=== PATIENT | female | born 1985 | race Hispanic/Latino ===

== ENCOUNTER 2020-08-23 08:10 | Emergency (ER) | payer SELFPAY ==
[2020-08-23 08:24] VITALS: BP 136/87
--- NOTE | 2020-08-23 09:36 | Emergency Department Report ---
ED Eye Problem HPI - General Chief complaint: Eye Problems Stated complaint: RT EYE INFECTION Time Seen by Provider: 08/23/20 08:40 Source: patient Mode of arrival: Ambulatory Limitations: No Limitations - History of Present Illness Initial comments: This is a 35-year-old female nontoxic, well nourished in appearance, no acute signs of distress presents to the ED with c/o of right eye redness, itching and upper eyelid swelling x2 days. Patient denies any trauma to the eye. Denies any foreign body sensation or floaters. Patient denies any eye pain. Patient denies any visual changes or decreased vision. Patient denies any fever, chills, nausea, vomiting, chest pain, breath, headache, stiff neck numbness or tingling. Patient stated allergies to amoxicillin and latex. MD chief complaint: eye redness -: days(s) Onset Description: gradual Location: right eye If Injury: none Severity scale (0 -10): 0 Associated Symptoms: none. denies: headache, neck pain, nausea/vomiting, cough, rhinorrhea, fever, shortness of breath Treatments Prior to Arrival: none - Related Data Previous Rx's Medication Instructions Recorded Last Taken Type Azithromycin [Zithromax Z-GRACE] 250 mg PO DAILY #6 tablet 08/23/20 Unknown Rx Erythromycin [Erythromycin Ophth 10 applic OD 4XD 7 Days #1 tube 08/23/20 Unknown Rx Oint] Allergies Allergy/AdvReac Type Severity Reaction Status Date / Time latex Allergy Rash Verified 08/23/20 08:21 amoxicillin AdvReac Unknown Verified 08/23/20 08:21 ED Review of Systems ROS: Stated complaint: RT EYE INFECTION Other details as noted in HPI Comment: All other systems reviewed and negative Constitutional: denies: chills, fever Eyes: denies: eye pain, eye discharge, vision change ENT: denies: ear pain, throat pain Respiratory: denies: cough, shortness of breath, wheezing Cardiovascular: denies: chest pain, palpitations Endocrine: no symptoms reported Gastrointestinal: denies: abdominal pain, nausea, diarrhea Genitourinary: denies: urgency, dysuria, discharge Musculoskeletal: denies: back pain, joint swelling, arthralgia Skin: denies: rash, lesions Neurological: denies: headache, weakness, paresthesias Psychiatric: denies: anxiety, depression Hematological/Lymphatic: denies: easy bleeding, easy bruising ED Past Medical Hx - Past Medical History Previous Medical History?: No - Medications Home Medications: Home Medications Medication Instructions Recorded Confirmed Last Taken Type Azithromycin [Zithromax Z-GRACE] 250 mg PO DAILY #6 tablet 08/23/20 Unknown Rx Erythromycin [Erythromycin Ophth 10 applic OD 4XD 7 Days #1 tube 08/23/20 Unknown Rx Oint] ED Physical Exam - General Limitations: No Limitations General appearance: alert, in no apparent distress - Head Head exam: Present: atraumatic, normocephalic - Eye Eye exam: Present: normal appearance, PERRL, EOMI, other (upper eyelid some swelling. no cellulitis.). Absent: scleral icterus, conjunctival injection, nystagmus, periorbital swelling, periorbital tenderness Pupils: Present: normal accommodation. Absent: irregular - Neck Neck exam: Present: normal inspection, full ROM. Absent: tenderness, meni ngismus, lymphadenopathy - Respiratory Respiratory exam: Absent: respiratory distress - Cardiovascular Cardiovascular Exam: Present: regular rate - Extremities Exam Extremities exam: Present: full ROM - Back Exam Back exam: Present: full ROM - Neurological Exam Neurological exam: Present: alert, oriented X3, normal gait - Psychiatric Psychiatric exam: Present: normal affect, normal mood - Skin Skin exam: Present: warm, dry, intact, normal color. Absent: rash - Other Other exam information: Under Carmona lamp, I used fluorescein and tetracaine to examine cornea for corneal abrasion or foreign body, negative for coronary abrasion or foreign body noted upon exam. ED Course Vital Signs 08/23/20 08:23 Temperature 98.0 F Pulse Rate 76 Respiratory 18 Rate Blood Pressure 136/87 O2 Sat by Pulse 95 Oximetry - Reevaluation(s) Reevaluation #1: 08/23/20 09:29 Patient is speaking in full sentences with no signs of distress noted. ED Medical Decision Making - Medical Decision Making Patient is stable and was examined by me. Exam is unremarkable. Vital signs are stable. Patient be treated with patient was instructed to follow-up with a high school english teacher doctor in 3-5 days or if symptoms worsen and continue return to emergency room as soon as possible. At time of discharge, the patient does not seem toxic or ill in appearance. No acute signs of distress noted. Patient agrees to discharge treatment plan of care. No further questions noted by the patient. Critical care attestation.: If time is entered above; I have spent that time in minutes in the direct care of this critically ill patient, excluding procedure time. ED Disposition Clinical Impression: Blepharitis of eyelid of right eye Qualifiers: Blepharitis type: unspecified type Eyelid: upper Qualified Code(s): H01.001 - Unspecified blepharitis right upper eyelid Disposition: - TO HOME OR SELFCARE Is pt being admited?: No Does the pt Need Aspirin: No Condition: Stable Instructions: Blepharitis Additional Instructions: Follow-up with a high school english teacher doctor in 3-5 days or if symptoms worsen and continue return to emergency room as soon as possible. Prescriptions: Erythromycin [Erythromycin Ophth Oint] 10 applic OD 4XD 7 Days #1 tube Azithromycin [Zithromax Z-GRACE] 250 mg PO DAILY #6 tablet Referrals: PRIMARY CAREMD [Primary Care Provider] - 3-5 Days DAXA CORONA MD [Staff Physician] - 3-5 Days Forms: Work/School Release Form(ED) Time of Disposition: 09:41
== END 2020-08-23 10:15 | disposition home or self-care (01) ==
LOC: ED 08:10
DX: H01.001 Unspecified blepharitis right upper eyelid (principal); Z79.2 Long term (current) use of antibiotics; Z79.899 Other long term (current) drug therapy; Z91.040 Latex allergy status; Z88.2 Allergy status to sulfonamides
CPT/HCPCS: 99281

== ENCOUNTER 2022-01-12 15:53 | Emergency (ER) | payer SELFPAY ==
[2022-01-12 17:18] VITALS: BP 152/85
[2022-01-12 17:42] LABS: Bilirubin,Urine NEG (Negative); Blood,Urine SM (Negative); Color,Urine Amber (Yellow)
[2022-01-12 17:47] LABS: Bacteria,Urine 1+ /HPF (Negative); Mucus,Urine 2+ /HPF
[2022-01-12 17:49] LABS: HCG Qualitative,Urine Negative (Negative)
== END 2022-01-12 22:26 | disposition left against medical advice (07) ==
LOC: ED 15:53
DX: R31.9 Hematuria, unspecified (principal); M54.9 Dorsalgia, unspecified; Z53.21 Procedure and treatment not carried out due to patient leaving prior to being seen by health care provider
CPT/HCPCS: 81001; 81025; 87086